=== PATIENT | male | born 1950 | race Caucasian/White ===

== ENCOUNTER → 2016-11-23 | Outpatient (CLI) | payer OTHER ==
[~2016-11-23] MED LIST: GADOBUTROL 10 ML VIAL IVP ONE
--- NOTE | 2016-11-23 13:32 | MR ---
MRI Lumbar Spine, Without and With Contrast History: Back pain. History of lumbar fusion from L3 to S1. Comparison: November 2014. Technique: MRI is performed of the lumbar spine using a 1.5 Kenisha MRI system. Sagittal and axial imag ing was obtained with standard imaging sequences. Images were obtained precontrast and postintravenou s contrast, 9.5 mL Gadavist. Findings: Postsurgical changes are seen of lumbar fusion from L3 through S1 with paired pedicle screw s and stabilization rods. There has been laminectomy at L5 and probable left laminotomy at L4. Interb singh bone graft has been placed at these levels with stable alignment. There is 3 mm anterolisthesis o f L4 on L5, similar in appearance. Conus is visualized at T12-L1 and is normal in size and signal int ensity. No evidence for abnormal enhancement of the conus or cauda equina. Degenerative endplate isbell ge is seen at multiple levels. The degenerative endplate change has progressed at L2-L3 anteriorly wi th more prominent anterior and lateral osteophytosis. There is disk desiccation and disk height narro wing at L2-L3 which have worsened over the interval. T11-T12 level demonstrates a broad-based annular bulge. Facet arthropathy is seen bilaterally causing mild spinal canal encroachment. There is severe left and mild to moderate right neural foraminal hina rowing. T12-L1 level demonstrates minimal facet arthropathy causing no significant encroachment. L1-L2 level demonstrates mild facet arthropathy causing no significant encroachment. L2-L3 level demonstrates a broad-based annular bulge. Facet arthropathy is seen bilaterally, this wor sened over the interval with severe central spinal canal and bilateral lateral recess narrowing. Ther e is severe right and moderate to severe left neural foraminal narrowing. L3-L4 level demonstrates facet hypertrophy on the left and a slight broad-based bulge causing mild le ft lateral recess and neural foraminal narrowing, unchanged. L4-L5 level demonstrates no significant spinal canal narrowing. Minimal neural foraminal narrowing fr om the anterolisthesis is unchanged. L5-S1 level demonstrates mild facet arthropathy causing minimal bilateral neural foraminal narrowing, unchanged. Impressions 1. Postsurgical changes of fusion at L3-S1 with a stable appearance. 2. Progressive degenerative disk and degenerative joint disease L2-L3 with severe central spinal samuel l and bilateral neural foraminal narrowing, right greater than left. 3. Other levels of encroachment as detailed above.
--- NOTE | 2016-11-23 13:39 | DX ---
Lumbar Spine, AP Upright, Neutral Lateral Upright, and Lateral Flexion-Extension Views, Four Views To judith, at 11:29 a.m. Clinical History: 66-year-old male with low back pain and prior arthrodesis history. ICD-10 Diagnostic Codes: M54.5, M54.2, and R20.2. Comparison Study: Conventional radiographs dated March 08, 2012. The patient also had MR imaging of t he lumbar spine this morning, and that report should be separately referenced. Findings: There are five nonrib-bearing lumbar-type vertebral bodies. The patient has undergone poste rior spinal fusion from L3 to S1, with longitudinally oriented rods secured by bilateral transpedicul ar screws which are stable in alignment. There is a persistent fracture of the left S1 screw; however , there is no periprosthetic lucency or other evidence of hardware failure. Radiopaque markers overli e the interbody osseous fusion levels. There is 6 mm of L4 anterolisthesis above L5, although this do es not change with flexion or extension. Since the study in 2011, there has been progression of degen erative disk space narrowing with endplate sclerosis, mild vacuum disk phenomena, and ventral tractio n spurs. Facet hypertrophy is most pronounced from L3-L4 through L5-S1. There are ventral traction os teophytes in the lower thoracic spine. There is no compression deformity. The SI joints appear normal , and the sacral arcuate lines are well-contoured. Each femoral head is well-seated within its respec tive acetabulum. Impression: 1. Stable appearance of the arthrodesis hardware from L3 to S1, compared to March 08, 2012, with an u nchanged fracture of the left S1 transpedicular screw. 2. Advanced degenerative disk disease at L2-L3, which has developed since 2011. 3. Stable mild anterolisthesis at L4-L5, with no evidence of instability with flexion or extension job hill
--- NOTE | 2016-11-23 13:51 | MR ---
MRI Cervical Spine, Without and With Contrast History: Neck pain. Numbness and tingling down left arm. Technique: MRI is performed of the cervical spine using a 1.5 Kenisha MRI system. Sagittal and axial im aging was obtained with standard imaging sequences. Precontrast and postcontrast imaging was obtained with 9.5 mL Gadavist. Postcontrast imaging was performed secondary to abnormality in the cervical co rd, and contrast was already being given for the lumbar spine today. Findings: There is a focal area of fluid signal intensity centrally in the cervical cord at the level of C5 extending craniocaudally for 1 cm. The appearance is most suggestive of focal dilatation of th e central canal, syringomyelia. There is no evidence of abnormal enhancement or mass in the cervical cord. Degenerative endplate change is seen at multiple levels more significant at C5-C6 and C6-C7. There is disk desiccation and disk height narrowing at multiple levels also more predominant at C5-C6 and C6- C7. There is mild reversal of the normal lordotic curvature centered over C6 but no significant spond ylolisthesis. C2-C3 level demonstrates facet arthropathy bilaterally more predominant on the right than the left. Uncovertebral joint hypertrophy is seen on the right causing moderate right and minimal left neural f oraminal narrowing. C3-C4 level demonstrates a mild broad-based annular bulge and small central protrusion mildly effacin g the anterior thecal sac. Uncovertebral joint hypertrophy is seen bilaterally. Facet arthropathy is seen bilaterally more severe on the right. There is severe right and moderate left neural foraminal n arrowing. C4-C5 level demonstrates a mild broad-based annular bulge mildly effacing the anterior thecal sac. Un covertebral joint hypertrophy is seen bilaterally. Facet arthropathy is seen bilaterally more severe on the left. There is moderate left and mild right neural foraminal narrowing. C5-C6 level demonstrates a broad-based annular bulge moderately effacing the anterior thecal sac, jt emily the anterior margin of the cervical cord. Uncovertebral joint hypertrophy, spurring, and facet arthropathy are seen bilaterally causing moderate to severe left and moderate right neural foraminal narrowing. C6-C7 level demonstrates a broad-based annular bulge and a central protrusion osteophyte complex mode rately effacing the anterior thecal sac, touching the anterior margin of the cervical cord. Uncoverte bral joint hypertrophy and spurring are seen bilaterally causing severe bilateral neural foraminal na rrowing. C7-T1 level demonstrates mild uncovertebral joint hypertrophy bilaterally more predominant on the lef t. Mild facet arthropathy is seen bilaterally causing moderate bilateral neural foraminal narrowing, left greater than right. T1-T2 level demonstrates a broad-based annular bulge mildly effacing the anterior thecal sac. This wi th the facet arthropathy are seen bilaterally and uncovertebral joint hypertrophy causing moderate to severe bilateral neural foraminal narrowing. Impressions 1. Multilevel degenerative disk and degenerative joint disease cervical spine. Levels of more severe central spinal canal narrowing are at C5-C6 and C6-C7. There are multiple levels of significant neura l foraminal encroachment as detailed above by level. 2. 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
== END ==
LOC: FIMAGING 08:52
PROVIDERS: ATTEND Neurological Surgery
DX: M51.36 Other intervertebral disc degeneration, lumbar region (principal); M50.322 Other cervical disc degeneration at C5-C6 level; M43.16 Spondylolisthesis, lumbar region; M47.892 Other spondylosis, cervical region; M47.896 Other spondylosis, lumbar region; Z98.1 Arthrodesis status
CPT/HCPCS: 72110; 72156; 72158; A9585

== ENCOUNTER 2016-12-07 06:13 | Inpatient (IN) | payer OTHER ==
[2016-12-07] MEDS ORDERED: LIDOCAINE 1% 5 ML SDV ONE (06:36)
[2016-12-07] MEDS ORDERED: LR 1,000 ML IV ONE (06:39)
[2016-12-07] MEDS ORDERED: LIDOCAINE/BUPIVICAINE 10 ML SYR ONE (06:49)
[2016-12-07] MEDS ORDERED: LIDO/BUPIVA 10ML SYR IU ONE (07:00)
[2016-12-07] MEDS ORDERED: ceFAZolin 2 GM/DEXTROSE 100 ML IV ONE (07:00)
[2016-12-07] MEDS ORDERED: LIDO/BUPIVA/morphINE 15ML SYR IU ONE (07:00)
[2016-12-07] MEDS ORDERED: PROPOFOL 200 MG/20 ML VIAL ONE ×2 (07:05→07:06)
[2016-12-07] MEDS ORDERED: fentaNYL 100 MCG/2 ML INJ ONE ×2 (07:05→10:20)
[2016-12-07] MEDS ORDERED: ROCURONIUM 50 MG/5 ML VIAL ONE (07:08)
[2016-12-07] MEDS ORDERED: PHENYLEPHRINE HCL 100 MCG/ML SYR ONE ×2 (07:08→08:13)
[2016-12-07] MEDS ORDERED: MIDAZOLAM 2 MG/2 ML VIAL ONE (07:09)
[2016-12-07] MEDS ORDERED: LIDOCAINE 2% 100 MG/5 ML SYR IVP ONE (07:09)
[2016-12-07] MEDS ORDERED: clonIDINE 1 MG/10 ML VIAL EP ONE (07:11)
[2016-12-07] MEDS ORDERED: DEXAMETHASONE 4 MG/ML VIAL ONE ×2 (07:12→08:38)
[2016-12-07] MEDS ORDERED: ONDANSETRON 4 MG/2 ML VIAL ONE (08:38)
[2016-12-07] MEDS ORDERED: PHENYLEPHRINE 10 MG/ML SDV ONE (08:44)
[2016-12-07] MEDS ORDERED: ONDANSETRON 4 MG/2 ML VIAL IVP PRN (10:21)
[2016-12-07] MEDS ORDERED: CETIRIZINE 10 MG TAB PO PRN (10:26)
[2016-12-07] MEDS ORDERED: SKIN ADHESIVE (DERMABOND) 1 EACH TP ONE (10:36)
[2016-12-07] MEDS ORDERED: SUGAMMADEX SODIUM 200 MG/2 ML VIAL IVP ONE (10:41)
--- NOTE | 2016-12-07 12:06 | GOP ---
[f rep st] OPERATIVE REPORT DATE OF OPERATION: 12/07/2016 SURGEON: Ezequiel Douglas MD HOSPICE ADMITTING CLERK: Facundo Junior MD. It should be noted no qualified resident was available. microbiology lab assistant was necessary to assist with the exposure, the placement of the shoulder replacement, and the biceps tenodesis. ANESTHESIA: General with interscalene block. ANESTHESIOLOGIST: Dr. Hernandez. PREOPERATIVE DIAGNOSIS: Left shoulder osteoarthritis, biceps tendinitis. POSTOPERATIVE DIAGNOSIS: Left shoulder osteoarthritis, biceps tendinitis. PROCEDURE PERFORMED: 1. Left total shoulder arthroplasty utilizing a press-fit stemless humeral head 50 x 16 modular head with a size 2 Simpliciti tray and a cemented Aequalis quarter lock peg polyethylene glenoid size L50, CPT code 16633. 2. Open biceps tenodesis, CPT code 89052. PATIENT POSITION: Beach chair. FINDINGS: INDICATIONS: The patient is a 66-year-old with a history of right shoulder arthroplasty. He has done well with this, but has had persistent symptoms on his left side, and desired to go ahead with a left total shoulder arthroplasty. The patient understood the potential risks and benefits, including, but not limited to, bleeding, infection, persistent pain, stiffness, anesthetic risks, injury to the nerves. The patient understood this and desired to proceed. DESCRIPTION OF PROCEDURE: The patient was taken to the operating room. After undergoing successful interscalene block and general anesthesia, the left upper extremity was prepped and draped in the usual sterile manner. Anatomic landmarks were identified. The anterior incision was made, extending from the coracoid, extending down the inferior and distally and laterally. The deltopectoral interval was identified. The cephalic vein was identified; this was taken laterally, and this plane was developed. The self-retaining retractors were placed. The conjoined tendon was identified, and then the self- retaining retractor was placed underneath this. The superior 5 mm of the pectoralis was incised as a relaxing incision. The biceps tendon was identified. There was a very edematous sheath in biceps. The groove was curetted, and 2.9 mm JuggerKnot suture anchor was placed using two #2 MaxBraid sutures. These were placed through and around the biceps tendon. These were placed through the biceps with cut above this. Next, the anterior humeral circumflex vessels were identified, and these were tied off. Next, the subscapularis was then divided approximately a centimeter away from its attachment on the lesser tuberosity. This was tagged with #2 nonabsorbable sutures. The humeral head was then exposed. The capsule was released off the inferior humeral neck. This was tight. Humeral head was exposed, the peripheral osteophytes taken off, and then a humeral head cut was made at approximately 130 degrees of inclination with 30 degrees of retroversion. The central area was identified, and the area was drilled, and the trial size 2 tray was placed, and the best head appeared to be a 50 x 16. Next, the subscapularis was released at the interval, and then off the anterior glenoid. The humeral head retractors were placed. It should be noted that the axillary nerve was palpated and protected during the procedure. The capsule was released off anterior, inferior, and posterior. The glenoid was exposed. The best size for the glenoid was a large glenoid 50. Thus, the central hole was placed with a guide. The area was reamed, and 3 peripheral pegged holes were placed. A trial pegged glenoid was placed. This provided excellent fixation. The area was then thoroughly irrigated. Epinephrine-soaked sponges were placed into the holes in the glenoid. The methylmethacrylate cement was then mixed and then placed in the holes, and the size L50 polyethylene glenoid was then placed. This was allowed to set for just over 15 minutes to set in its position , and any peripheral cement was taken off. Next, the trial head was placed. The best fit was a 50 x 16 mm head. The area was irrigated. The final implant was placed. This was the size 2 tray press-fit stemless tray and the modular 50 x 16 mm head. This provided 50% translation posteriorly, inferiorly, and anteriorly. The area was irrigated. The subscapularis was repaired using #2 FiberWire suture. The lateral portion of the rotator interval was closed using #2 FiberWire suture. The area was flushed out. The deltopectoral interval was closed proximally using 0 Vicryl sutures. Skin closed using 3-0 Monocryl suture followed by running 3-0 Prolene. The patient had a sterile dressing. A drain had been placed. The area had been injected around the incision with 0.25 % Marcaine, 1% lidocaine, and 5 mg of Duramorph. The patient was placed in a sling with small abduction pillow. Cryo device was placed, which was necessary to decrease inflammation and swelling. The patient was awakened, taken to the recovery room in stable condition. Sponge, instrument, and needle counts were correct. PLAN: For the patient to undergo physical therapy with emphasis on range of motion and strengthening according to protocol. The patient will be admitted overnight for pain control. /[id number]/MODL MTDD
--- NOTE | 2016-12-07 15:00 | DX ---
Portable left shoulder 2 views December 07, 2016, 1129 hours HISTORY: Assess hardware. FINDINGS: The shoulder is obscured by cooling apparatus. Drainage tube exits superiorly from the shou lder. Surgical clip is present. Metallic prosthetic surface is well apposed to the humeral head. No d islocation. No fracture is identified. Acromioclavicular joint is intact. IMPRESSION: New prosthetic left humeral head; no dislocation.
[2016-12-07] MEDS: CHOLECALCIFEROL VIT D3 1,000 UNITS TAB PO SCH (15:21)
[2016-12-07] MEDS: ceFAZolin 2 GM/DEXTROSE 100 ML IV SCH ×2 (15:22→22:27)
[2016-12-07] MEDS: NAPROXEN SODIUM 220 MG TAB PO SCH (20:10)
[2016-12-07] MEDS: DOCUSATE SODIUM 100 MG CAP PO SCH (20:10)
[2016-12-07] MEDS: HYDROCODONE/APAP 5/325 TAB PO PRN (22:28)
[2016-12-08] MEDS: HYDROCODONE/APAP 5/325 TAB PO PRN ×2 (04:49→10:50)
[2016-12-08 07:36] VITALS: BP 124/76; PULSE 64; RESP 14; TEMP 97.7; O2SAT 92
[2016-12-08] MEDS ORDERED: MULTIVITAMINS 1 EACH TAB PO SCH (08:00)
--- NOTE | 2016-12-08 08:23 | SOAPPROG ---
SOAP Progress Note Assessment/Plan: Assessment: POD #1: L TSA -Pain well controlled, working with PT, ok to d/c home today -F/u with [facility] in 1 week. Plan: 12/08/16 08:21 Subjective: Doing well, still has some benefit from nerve block, mildly impaired sleep last night. Objective: Vital Signs Temp Pulse Resp BP Pulse Ox 36.5 C 64 14 124/76 H 92 12/08/16 07:35 12/08/16 07:35 12/08/16 07:35 12/08/16 07:35 12/08/16 07:35 12/07/16 12/08/16 12/09/16 05:59 05:59 05:59 Intake Total 2300 Output Total 2375 Balance -75 Drain removed with 25cc dark red blood. Sensation remains mildly impaired in axillary and radial nerve distributions. Improves with arm extension out of sling. ICD10 Worksheet Patient Problems: Problems Problem Status Diagnosed Primary osteoarthritis of knees, bilateral Acute
[2016-12-08] MEDS: DOCUSATE SODIUM 100 MG CAP PO SCH (08:54)
[2016-12-08] MEDS: NAPROXEN SODIUM 220 MG TAB PO SCH (08:54)
[2016-12-08] MEDS ORDERED: GLUCOSAMINE/CHONDROITIN CAP PO SCH (09:00)
[2016-12-08] MEDS ORDERED: ALLOPURINOL 100 MG TAB PO SCH (09:00)
--- NOTE | 2016-12-08 09:09 | GDS ---
[f rep st] DISCHARGE SUMMARY CHIEF COMPLAINT: Left shoulder pain. HOSPITAL COURSE: The patient is 66-year-old male who reported to [facility] Operating Room under the care of Dr. Ezequiel Douglas for left total shoulder arthroplasty for treatment of left shoulder osteoarthritis. He does have concomitant cervical spine pathology and precautions were taken for cervical spine immobilization during surgery. He underwent surgery without complications. He recovered in the PACU before being transferred to the [address] [place], [place] [address]Surgery Unit, where his recovery has been uncomplicated to this point. His pain was well controlled over night. He continues to have some benefit from the interscalene nerve nancy and has some mild numbness and tingling remaining in his hand this morning. He is working with physical therapy and plans to discharge home today. His pain has been well controlled. He has no additional neck or cervical spine symptoms. He was examined today with sling well placed and his drain was removed with 25 cc of blood and clotting at the end. He will follow up with Sports Medicine in 1 week for suture removal and postoperative radiographs. He was given instructions for postoperative wound care, showering instructions and pain control. He will call with any questions or concerns. /[id number]/MODL MTDD
[2016-12-08] MEDS: CHOLECALCIFEROL VIT D3 1,000 UNITS TAB PO SCH (10:57)
== END 2016-12-08 11:24 | disposition home or self-care (01) | DRG 483 ==
LOC: F3N 06:13
PROVIDERS: ADMIT Orthopaedic Surgery Sports Medicine; ATTEND Orthopaedic Surgery Sports Medicine
PROC: 0LM40ZZ Reattachment of Left Upper Arm Tendon, Open Approach (ICD-10-PCS; principal; 2016-12-07 07:15)
PROC: 0RRK0JZ Replacement of Left Shoulder Joint with Synthetic Substitute, Open Approach (ICD-10-PCS; principal; 2016-12-07 07:15)
DX: M19.012 Primary osteoarthritis, left shoulder (principal); M75.22 Bicipital tendinitis, left shoulder; I10 Essential (primary) hypertension
CPT/HCPCS: 97161-GP; 97165-GO; C1713; G8978-GP-CI; G8979-GP-CI; G8980-GP-CI; G8987-GO-CJ; G8988-GO-CJ; G8989-GO-CJ; J0171; J0690; J0735; J1100; J2001; J2250; J2274; J2370; J2405; J2704; J3010

== ENCOUNTER → 2017-07-25 | Outpatient (CLI) | payer OTHER | LOC: FCPNEURO 20:00 | PROVIDERS: ATTEND Psychiatry & Neurology Sleep Medicine | DX: G47.33 Obstructive sleep apnea (adult) (pediatric) (principal); G47.31 Primary central sleep apnea; G47.52 REM sleep behavior disorder ==